=== PATIENT | female | born 1945 | race Caucasian/White ===

== ENCOUNTER 2020-05-20 15:11 | Emergency (ER) | payer OTHER ==
[~2020-05-20] VITALS: Ht 152.4 cm; Wt 62.6 kg
[2020-05-20 15:37] VITALS: BP 142/67
--- NOTE | 2020-05-20 15:48 | NUR ---
75 YEAR OLD FEMALE COMPLAINS OF BODY ACHES X 4 DAYS. PT AOX4, BREATHING EVEN AND UNLABORED, SKIN WARM AND DRY. BED IN LOWEST POSITION, LOCKED, BED RAIL UPX1. PMH - DM2, ARTHRITIS
[2020-05-20] MEDS ORDERED: MORPHINE SULFATE 2 MG/ML SYR IM ONE (16:10)
[2020-05-20 17:30] VITALS: BP 142/67
--- NOTE | 2020-05-20 17:30 | NUR ---
PT D/C WITH VSS. PT WAS INSTRCUTED TO FOLLOW UP WITH PCP AND EDUCATED ABOUT IN [facility]. PT UNDERSTOD. PT WAS WHEEL CHAIRED OUT OF ER. NO SIGN OF DISTRESS NOTED.
== END 2020-05-20 17:30 | disposition home or self-care (01) ==
LOC: MED 15:11
DX: M13.812 Other specified arthritis, left shoulder (principal); N39.0 Urinary tract infection, site not specified; E11.9 Type 2 diabetes mellitus without complications
CPT/HCPCS: 81002; 96372; 99283; J2270

== ENCOUNTER 2022-10-03 13:43 | Emergency (ER) | payer OTHER ==
[~2022-10-03] VITALS: Ht 143.5 cm; Wt 62.2 kg
[2022-10-03 13:59] VITALS: BP 146/82
[2022-10-03] MEDS ORDERED: IBUPROFEN 600 MG TAB PO ONE (14:50)
[2022-10-03] MEDS ORDERED: IBUP-1842 PO (15:04)
== END 2022-10-03 15:14 | disposition home or self-care (01) ==
LOC: MED 13:43
DX: S42.211A Unspecified displaced fracture of surgical neck of right humerus, initial encounter for closed fracture (principal); M25.521 Pain in right elbow; E11.9 Type 2 diabetes mellitus without complications; Z79.1 Long term (current) use of non-steroidal anti-inflammatories (NSAID); W18.39XA Other fall on same level, initial encounter; Y92.89 Other specified places as the place of occurrence of the external cause; Y93.89 Activity, other specified; Y99.8 Other external cause status
CPT/HCPCS: 73030; 73080; 82948; 99284